=== PATIENT | female | born 1950 | race Caucasian/White ===

== ENCOUNTER 2017-11-11 20:30 | Outpatient (CLI) | payer OTHER, MEDICARE | END 2017-11-11 20:31 | disposition home or self-care (01) | LOC: SLEEPLAB 20:30 | PROVIDERS: ATTEND Internal Medicine | DX: G47.9 Sleep disorder, unspecified (principal); F41.9 Anxiety disorder, unspecified; I10 Essential (primary) hypertension; R00.2 Palpitations | CPT/HCPCS: 95810 ==

== ENCOUNTER 2018-05-03 14:38 | Outpatient (CLI) | payer OTHER, MEDICARE | END 2018-05-03 14:39 | disposition home or self-care (01) | LOC: BICMAMMO 14:38 | PROVIDERS: ATTEND Internal Medicine | DX: Z12.31 Encounter for screening mammogram for malignant neoplasm of breast (principal) | CPT/HCPCS: 77063; 77067 ==

== ENCOUNTER 2018-09-10 08:34 | Outpatient (CLI) | payer OTHER, MEDICARE ==
--- NOTE | 2018-09-10 10:24 | BD ---
DEXA BONE MINERAL DENSITY: HISTORY: Osteoporosis screening. Postmenopausal female. COMPARISON: DEXA study 04/05/2016. FINDINGS: Lumbar Spine: BMD (g/cm2) L1 0.780 T-Score: -1.9 -0.2 L2 0.812 T-Score: -2.0 -0.1 L3 0.756 T-Score: -3.0 -1.0 L4 0.856 T-Score: -1.9 0.1 L1-L4 0.802 T-Score: -2.2 -0.3 WHO classification of osteopenia change from the baseline of -6.6%, statistically significant. Beltrán e from previous is +6.2%, statistically significant. Femoral Neck: 0.542 T-Score: -2.8 -1.2 Total Femur: 0.786 T-Score: -1.3 0.0 WHO classification of osteoporosis. Change from the baseline examination from 2012 is -8.4%, statistically significant. Change from the previous is -1.2%, not statistically significant. 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 POS: [facility]
== END 2018-09-10 08:35 | disposition home or self-care (01) ==
LOC: BICMAMMO 08:34
PROVIDERS: ATTEND Internal Medicine Hematology & Oncology
DX: M81.0 Age-related osteoporosis without current pathological fracture (principal); M85.88 Other specified disorders of bone density and structure, other site
CPT/HCPCS: 77080

== ENCOUNTER 2019-05-28 09:22 | Outpatient (CLI) | payer OTHER, MEDICARE ==
--- NOTE | 2019-05-28 11:07 | MMO ---
Bilateral MAMMO Bilat Screen [facility]. CLINICAL HISTORY: Patient is 68 years old and is seen for screening. The patient has no family history of breast cancer. The patient has no personal history of cancer. VIEWS: The views performed were: bilateral craniocaudal with tomosynthesis; bilateral mediolateral oblique with tomosynthesis; and bilateral exaggerated craniocaudal. FILMS COMPARED: The present examination has been compared to prior imaging studies performed at [facility] on 05/03/2018, and [place] [facility]/07[place]2015, 04/05/2016 and 04/07/2017. MAMMOGRAM FINDINGS: The breasts are heterogeneously dense, which could obscure a lesion on mammography. There are no suspicious masses, suspicious calcifications, or new areas of architectural distortion. IMPRESSION: THERE IS NO MAMMOGRAPHIC EVIDENCE OF MALIGNANCY. A ROUTINE FOLLOW-UP MAMMOGRAM IN 1 YEAR IS RECOMMENDED. THE RESULTS OF THIS EXAM WERE SENT TO THE PATIENT. ACR BI-RADS Category 1 - Negative MAMMOGRAPHY NOTE: 1. A negative mammogram report should not delay a biopsy if a dominant of clinically suspicious mass is present. 2. Approximately 10% to 15% of breast cancers are not detected by mammography. 3. Adenosis and dense breasts may obscure an underlying neoplasm. Reported by: WELLINGTON QUICK MD Electonically Signed: [id number]
== END 2019-05-28 09:23 | disposition home or self-care (01) ==
LOC: BICMAMMO 09:22
PROVIDERS: ATTEND Internal Medicine
DX: Z12.31 Encounter for screening mammogram for malignant neoplasm of breast (principal)
CPT/HCPCS: 77063; 77067

== ENCOUNTER 2020-05-29 10:49 | Outpatient (CLI) | payer OTHER, MEDICARE ==
--- NOTE | 2020-05-29 11:30 | MMO ---
Bilateral MAMMO Bilat Screen [facility]. CLINICAL HISTORY: Patient is 69 years old and is seen for screening. The patient has no family history of breast cancer. The patient has no personal history of cancer. VIEWS: The views performed were: bilateral craniocaudal with tomosynthesis and bilateral mediolateral oblique with tomosynthesis. FILMS COMPARED: The present examination has been compared to prior imaging studies performed at [facility] on 05/03/2018 and 05/28/2019, and at [facility] on 04/05/2016 and 04/07/2017. This study has been interpreted with the assistance of computer-aided detection. MAMMOGRAM FINDINGS: The breasts are heterogeneously dense, which could obscure a lesion on mammography. There are no suspicious masses, suspicious calcifications, or new areas of architectural distortion. IMPRESSION: THERE IS NO MAMMOGRAPHIC EVIDENCE OF MALIGNANCY. A ROUTINE FOLLOW-UP MAMMOGRAM IN 1 YEAR IS RECOMMENDED. THE RESULTS OF THIS EXAM WERE SENT TO THE PATIENT. ACR BI-RADS Category 1 - Negative MAMMOGRAPHY NOTE: 1. A negative mammogram report should not delay a biopsy if a dominant of clinically suspicious mass is present. 2. Approximately 10% to 15% of breast cancers are not detected by mammography. 3. Adenosis and dense breasts may obscure an underlying neoplasm. Reported by: YEN QUINONEZ MD Electonically Signed: [id number]
--- NOTE | 2020-05-29 11:43 | BD ---
BONE DENSITOMETRY: Date: 05/29/2020 HISTORY: Postmenopausal screening. FINDINGS: Lumbar Spine: BMD (g/cm2) L1 0.814 T-Score: -1.6 L2 0.895 T-Score: -1.2 L3 0.803 T-Score: -2.6 L4 0.808 T-Score: -2.3 Total 0.828 T-Score: -2.0 Previous total lumbar density: 09/10/2018: 0.802 04/05/2016: 0.756 04/23/2013: 0.859 Femoral Neck: 0.554 T-Score: -2.7 Total Femur: 0.774 T-Score: -1.4 Previous total density: 09/10/2018: 0.786 04/05/2016: 0.796 04/23/2013: 0.858 IMPRESSION: 1. Bone mineral density of the femoral neck indicates osteoporosis. 2. Bone mineral density of the lumbar spine indicates osteopenia. POS: [facility]
== END 2020-05-29 10:50 | disposition home or self-care (01) ==
LOC: BICMAMMO 10:49
PROVIDERS: ATTEND Internal Medicine
DX: Z12.31 Encounter for screening mammogram for malignant neoplasm of breast (principal); M81.0 Age-related osteoporosis without current pathological fracture; M85.88 Other specified disorders of bone density and structure, other site
CPT/HCPCS: 77063; 77067; 77080

== ENCOUNTER 2020-12-07 15:40 | Outpatient (CLI) | payer OTHER, MEDICARE ==
--- NOTE | 2020-12-07 16:03 | RAD ---
XR Hip Rt 2-3 View History: Hip pain Comparison: None. Findings: Moderate degenerative disease of the right hip with medialization the femoral head, margina l osteophytes of the right femoral head and neck junction, as well as ossification of the right labrum. Moderate sclerosis of the pubic symphysis. No SI joint widening. Moderate facet arthrosis lower lumbar spine. Mild posttraumatic changes on the left hamstring tendons. Impression: Mild-advanced right hip degenerative change.
== END 2020-12-07 15:41 | disposition home or self-care (01) ==
LOC: BICRAD 15:40
PROVIDERS: ATTEND Physical Medicine & Rehabilitation
DX: M25.551 Pain in right hip (principal); M16.11 Unilateral primary osteoarthritis, right hip

== ENCOUNTER 2020-12-29 08:38 | Outpatient (CLI) | payer OTHER, MEDICARE ==
--- NOTE | 2020-12-29 11:24 | MRI ---
MR the lumbar spine without contrast: 12/29/2020 History: Low back pain with right lower extremity radiculopathy COMPARISON: 12/07/2015 TECHNIQUE: Multiplanar multisequence MR images were obtained of lumbar spine without IV contrast FINDINGS: On the basis of 5 lumbar type vertebral bodies, conus medullaris terminates at [id number] level. Sagittal STIR imaging demonstrates no focal area of osseous marrow edema. There is mild anterolisthes is at L4-5 measuring 5-6 mm and at L5-S1 measuring 5 mm. T12-L1:There is mild disc space and with disc desiccation with mild bilateral facet hypertrophy. No s ignificant central canal or neural foraminal stenosis. Anterior right-sided osteophyte formation noted. L1-2:Mild anterior osteophyte formation and mild bilateral facet hypertrophy. No significant central canal or neural foraminal stenosis. L2-3:Mild bilateral facet hypertrophy. There is no significant central canal or neural foraminal sten osis. L3-4:There is bilateral facet hypertrophy and hypertrophy of the ligamentum flavum, right greater gamal n left. There is disc space narrowing with disc desiccation and mild disc bulge. No significant central canal or neural foraminal stenosis. L4-5:There is disc space and with disc desiccation and mild disc bulge. There is prominent bilateral facet hypertrophy and hypertrophy of the ligamentum flavum with moderate central canal stenosis. There is fluid within the facet joint on the right. No significant neural foraminal stenosis noted. C entral canal stenosis as well as bilateral facet hypertrophy has worsened at L4-5 when compared to the 2016 exam. L5-S1:Prominent bilateral facet hypertrophy. There is disc space narrowing with disc desiccation and mild disc bulge. The thecal sac is small at this level secondary to epidural fat, a stable finding. No significant neural foraminal stenosis noted. Bilateral L5 pars defects are noted. Image retroperitoneal structures demonstrate a lateral mid pole left renal round T2 hyperintense les ion measuring 1.4 cm, which is has grown from approximately 4 mm on the prior examination. Given interval growth, ultrasound advised. IMPRESSION: Degenerative change within the lumbar spine, worsened at the L4-5 level as detailed above. T2 hyperintense left renal lesion as detailed above. Recommend further assessment with renal ultrasou nd. CODE T
== END 2020-12-29 08:39 | disposition home or self-care (01) ==
LOC: MRI 08:38
PROVIDERS: ATTEND Physical Medicine & Rehabilitation
DX: R20.2 Paresthesia of skin (principal); M47.816 Spondylosis without myelopathy or radiculopathy, lumbar region; M47.817 Spondylosis without myelopathy or radiculopathy, lumbosacral region; N28.9 Disorder of kidney and ureter, unspecified
CPT/HCPCS: 72148

== ENCOUNTER 2021-01-15 12:55 | Outpatient (CLI) | payer OTHER, MEDICARE | END 2021-01-15 12:56 | disposition home or self-care (01) | LOC: ULT 12:55 | PROVIDERS: ATTEND Internal Medicine | DX: N28.1 Cyst of kidney, acquired (principal) | CPT/HCPCS: 76770 ==

== ENCOUNTER 2021-05-07 09:39 | Outpatient (CLI) | payer OTHER, MEDICARE | END 2021-05-07 09:40 | disposition home or self-care (01) | LOC: EEVIPCON 09:39 → BICULT 09:39 | PROVIDERS: ATTEND Internal Medicine | DX: N28.1 Cyst of kidney, acquired (principal) | CPT/HCPCS: 76770 ==

== ENCOUNTER 2022-05-30 14:56 | Outpatient (CLI) | payer BC, MEDICARE | END 2022-05-30 14:57 | disposition home or self-care (01) | LOC: BICMAMMO 14:56 | PROVIDERS: ATTEND Internal Medicine | DX: Z12.31 Encounter for screening mammogram for malignant neoplasm of breast (principal) | CPT/HCPCS: 77063; 77067 ==

== ENCOUNTER 2022-07-13 14:48 | Outpatient (CLI) | payer BC, MEDICARE | END 2022-07-13 14:49 | disposition home or self-care (01) | LOC: BICMAMMO 14:48 | PROVIDERS: ATTEND Internal Medicine | DX: Z13.820 Encounter for screening for osteoporosis (principal); M81.0 Age-related osteoporosis without current pathological fracture; Z78.0 Asymptomatic menopausal state | CPT/HCPCS: 77080 ==

== ENCOUNTER 2022-09-27 09:18 | Outpatient (CLI) | payer BC, MEDICARE | END 2022-09-27 09:19 | disposition home or self-care (01) | LOC: LABBT 09:18 | PROVIDERS: ATTEND Neurological Surgery | DX: Z01.810 Encounter for preprocedural cardiovascular examination (principal) | CPT/HCPCS: 93005; 93010 ==

== ENCOUNTER 2022-09-30 06:57 | Day surgery (SDC) | payer BC, MEDICARE ==
[2022-09-29 13:14] VITALS: BMI 23.6
[2022-09-30] MEDS ORDERED: fentaNYL PF 100 MCG/2 ML SYRINGE ONE ×2 (08:57)
[2022-09-30] MEDS ORDERED: Dexmedetomidine 200 MCG/2 ML VIAL ONE (08:58)
[2022-09-30] MEDS ORDERED: CEFAZOLIN 2 GM VIAL ONE ×2 (09:06→15:21)
[2022-09-30] MEDS ORDERED: Sodium Chloride 0.9% 100 ML ONE ×2 (09:06→15:21)
[2022-09-30] MEDS ORDERED: PROPOFOL 200 MG/20 ML VIAL ONE (09:20)
[2022-09-30] MEDS ORDERED: ePHEDrine 50 MG/ML VIAL ONE (09:20)
[2022-09-30] MEDS ORDERED: Rocuronium Bromide 10 MG/ML (10ML VIAL) ONE (09:20)
[2022-09-30] MEDS ORDERED: Esmolol 100 MG/10 ML VIAL ONE (09:20)
[2022-09-30] MEDS ORDERED: Ondansetron PF 4 MG/2 ML Vial ONE (09:20)
[2022-09-30] MEDS ORDERED: Phenylephrine 10 MG/ML VIAL ONE (09:20)
[2022-09-30] MEDS ORDERED: Dexamethasone 20 MG/5 ML VIAL ONE (09:20)
[2022-09-30] MEDS ORDERED: NEOSTIGMINE 3 MG/3 ML SYR 3 MG/3 ML SYRINGE ONE (09:20)
[2022-09-30] MEDS ORDERED: MINERAL OIL/WHITE PETROLATUM 3.5 GM TUBE ONE (09:27)
[2022-09-30] MEDS ORDERED: Thrombin 5000 UNITS/5 ML VIAL ONE (09:27)
[2022-09-30] MEDS ORDERED: Bupivacaine HCl 0.5%/Epinephrine 1:200,000/PF 30 ml Vial ONE ×2 (09:39→10:09)
[2022-09-30] MEDS ORDERED: FENTANYL 50 MCG/ML 1 ML VIAL ONE ×2 (13:23→13:49)
[2022-09-30] MEDS ORDERED: HYDROcodone/Acetaminophen 5/325 mg Tablet ONE (15:12)
== END 2022-09-30 17:43 | disposition home or self-care (01) ==
LOC: SDC 06:57
PROVIDERS: ATTEND Neurological Surgery
PROC: 0SG0071 Fusion of Lumbar Vertebral Joint with Autologous Tissue Substitute, Posterior Approach, Posterior Column, Open Approach (ICD-10-PCS; principal; 2022-09-30)
PROC: 0QB00ZZ Excision of Lumbar Vertebra, Open Approach (ICD-10-PCS; principal; 2022-09-30)
PROC: 01NB0ZZ Release Lumbar Nerve, Open Approach (ICD-10-PCS; principal; 2022-09-30)
DX: M43.16 Spondylolisthesis, lumbar region (principal); M71.38 Other bursal cyst, other site; M48.061 Spinal stenosis, lumbar region without neurogenic claudication; M47.26 Other spondylosis with radiculopathy, lumbar region; M47.16 Other spondylosis with myelopathy, lumbar region; E78.5 Hyperlipidemia, unspecified; I10 Essential (primary) hypertension; G89.29 Other chronic pain; M81.0 Age-related osteoporosis without current pathological fracture; Z79.82 Long term (current) use of aspirin; Z79.899 Other long term (current) drug therapy
CPT/HCPCS: C1713; C1768; C1776; J1100; J2370; J2405; J2704; J3010; J3490; J7643

== ENCOUNTER 2023-06-19 14:01 | Outpatient (CLI) | payer BC, MEDICARE | END 2023-06-19 14:02 | disposition home or self-care (01) | LOC: BICMAMMO 14:01 | PROVIDERS: ATTEND Internal Medicine | DX: Z12.31 Encounter for screening mammogram for malignant neoplasm of breast (principal) | CPT/HCPCS: 77063; 77067 ==

== ENCOUNTER 2023-08-28 06:45 | Day surgery (SDC) | payer BC, MEDICARE ==
[2023-08-25 09:46] VITALS: BMI 22.3
[2023-08-28] MEDS ORDERED: ePHEDrine Sulfate 50 MG/10 ML VIAL ONE (08:42)
[2023-08-28] MEDS ORDERED: PROPOFOL 200 MG/20 ML VIAL ONE (08:42)
[2023-08-28] MEDS ORDERED: Lidocaine 1% PF 5 ML VIAL ONE (08:42)
[2023-08-28] MEDS ORDERED: PHENYLEPHRINE-NS 100 MCG/ML 10 ML SYRINGE ONE (08:42)
== END 2023-08-28 10:00 | disposition home or self-care (01) ==
LOC: SDC 06:45
PROVIDERS: ATTEND Internal Medicine Gastroenterology
PROC: 0DJ08ZZ Inspection of Upper Intestinal Tract, Via Natural or Artificial Opening Endoscopic (ICD-10-PCS; principal; 2023-08-28)
PROC: 0DJD8ZZ Inspection of Lower Intestinal Tract, Via Natural or Artificial Opening Endoscopic (ICD-10-PCS; principal; 2023-08-28)
DX: Z12.11 Encounter for screening for malignant neoplasm of colon (principal); K57.30 Diverticulosis of large intestine without perforation or abscess without bleeding; R10.13 Epigastric pain; I10 Essential (primary) hypertension; Z79.82 Long term (current) use of aspirin
CPT/HCPCS: J2704

== ENCOUNTER 2024-01-09 13:46 | Outpatient (CLI) | payer BC, MEDICARE | END 2024-01-09 13:47 | disposition home or self-care (01) | LOC: BICULT 13:46 | PROVIDERS: ATTEND Internal Medicine | DX: N28.1 Cyst of kidney, acquired (principal) | CPT/HCPCS: 76770 ==

== ENCOUNTER 2024-01-19 13:41 | Outpatient (CLI) | payer BC, MEDICARE | END 2024-01-19 13:42 | disposition home or self-care (01) | LOC: BICMAMMO 13:41 | PROVIDERS: ATTEND Internal Medicine | DX: M81.0 Age-related osteoporosis without current pathological fracture (principal); M85.851 Other specified disorders of bone density and structure, right thigh; M85.852 Other specified disorders of bone density and structure, left thigh | CPT/HCPCS: 77080 ==

== ENCOUNTER 2024-10-31 08:36 | Outpatient (CLI) | payer BC, MEDICARE ==
[2024-10-31 11:31] LABS: #Basophils 0.03 10x3/uL (0.0-0.2); %Basophils 0.7 % (0.0-1.0); %Eosinophils 2.4 % (0.0-10.0); %Lymphocytes 19.7 % (21.0-51.0); %Monocytes 8.7 % (0.0-10.0); %Neutrophils 67.4 % (42.0-75.0); Hematocrit 40.4 % (36.0-47.0); Mean Corpuscular HGB CONC 32.2 g/dL (32.0-36.0); Mean Corpuscular Hemoglobin 34.5 pg (27.0-31.0); Mean Corpuscular Volume 107.2 fL (78.0-98.0); Mean Platelet Volume 9.5 fL (7.4-10.4); Platelet Count 429 10x3/uL (130-400); RBC Distribution Width 14.2 % (11.5-14.5); Red Blood Cell (RBC) Count 3.77 mill/uL (4.20-5.40)
[2024-10-31 11:47] LABS: INR-International Normal Ratio 0.9; Prothrombin Time 12.6 sec (12.0-14.7)
[2024-10-31 12:02] LABS: Anion Gap 13 mmol/L (10-20); BUN (Urea Nitrogen) 19 mg/dL (9.8-20.1); Calc. Creatinine Clearance 0 mL/min (70-130); Carbon Dioxide 29 mmol/L (23-31); Chloride 102 mmol/L (98-107); Estimated GFR 59; Glucose 78 mg/dL (83-110); Potassium 3.6 mmol/L (3.5-5.1); Sodium 140 mmol/L (136-145)
== END 2024-10-31 08:37 | disposition home or self-care (01) ==
LOC: LABBT 08:36
PROVIDERS: ATTEND Orthopaedic Surgery
DX: Z01.818 Encounter for other preprocedural examination (principal); M16.11 Unilateral primary osteoarthritis, right hip
CPT/HCPCS: 80048; 85025; 85610; 87081; 93005; 93010

== ENCOUNTER 2024-11-04 05:31 | Inpatient (IN) | payer BC, MEDICARE ==
[2024-10-31 08:48] VITALS: BMI 23.6
[2024-11-04] MEDS ORDERED: Sodium Chloride 0.9% 100 ML ONE (05:59)
[2024-11-04] MEDS ORDERED: Vancomycin 1 GM/200 ML (FROZEN) BAG ONE (05:59)
[2024-11-04] MEDS ORDERED: Tranexamic Acid 1,000 MG/10 ML VIAL ONE (05:59)
[2024-11-04] MEDS ORDERED: Ropivacaine 0.2% HCl/PF 20 ML ONE (06:02)
[2024-11-04] MEDS ORDERED: PROPOFOL 20 ML ONE (06:08)
[2024-11-04] MEDS ORDERED: fentaNYL PF 100 MCG/2 ML SYRINGE ONE (06:08)
[2024-11-04] MEDS ORDERED: SUGAMMADEX SODIUM 200 MG/2 ML VIAL ONE (06:08)
[2024-11-04] MEDS ORDERED: Sodium Chloride 0.9% 250 ML 250 ML ONE (06:09)
[2024-11-04] MEDS ORDERED: Phenylephrine 10 MG/ML VIAL ONE (06:09)
[2024-11-04] MEDS ORDERED: Lidocaine 4% Topical Sol 50 ML BOT ONE (06:13)
[2024-11-04] MEDS ORDERED: Rocuronium Bromide 50 MG/5 ML VIAL ONE (06:13)
[2024-11-04] MEDS ORDERED: Dexamethasone 4 mg/ml Vial ONE (06:14)
[2024-11-04] MEDS ORDERED: Ondansetron PF 4 MG/2 ML Vial ONE (06:14)
[2024-11-04] MEDS ORDERED: CEFAZOLIN 2 GM VIAL ONE (06:56)
[2024-11-04] MEDS ORDERED: Lidocaine 1.5% w/Epi 1:200K 30 ML VIAL (Epid Use) ONE (07:35)
[2024-11-04] MEDS ORDERED: Naloxone HCl 0.4 mg/ml Vial IV PRN (08:00)
[2024-11-04] MEDS ORDERED: traMADol HCl 50 MG TAB PO PRN ×4 (08:00→09:55)
[2024-11-04] MEDS ORDERED: Bupivacaine 0.25% 10 ML VIAL EPIDURAL PRN (08:00)
[2024-11-04] MEDS ORDERED: Moisturizing Cream (Eucerin) 113 GM JAR TOP PRN (08:00)
[2024-11-04] MEDS ORDERED: Promethazine HCl 25 MG/ML VIAL IM PRN ×2 (08:00→09:55)
[2024-11-04] MEDS ORDERED: HYDROcodone/Acetaminophen 5/325 mg Tablet PO PRN ×2 (08:00)
[2024-11-04] MEDS ORDERED: Naloxone HCl 0.4 mg/ml Vial IVP PRN (08:00)
[2024-11-04] MEDS ORDERED: Promethazine HCl 25 MG SUPP PR PRN (08:00)
[2024-11-04] MEDS ORDERED: Aspirin 81 mg Enteric Coated Tablet PO SCH (09:55)
[2024-11-04] MEDS ORDERED: diphenhydrAMINE 25 MG CAP PO PRN (09:55)
[2024-11-04] MEDS ORDERED: Zolpidem Tartrate 5 MG TAB PO PRN (09:55)
[2024-11-04] MEDS ORDERED: Ondansetron PF 4 MG/2 ML Vial IVP PRN (09:55)
[2024-11-04] MEDS ORDERED: Hydroxyurea 500 MG CAP PO SCH (09:55)
[2024-11-04] MEDS ORDERED: fentaNYL 50 mcg/mL 1 mL Vial SLOW IVP PRN (09:55)
[2024-11-04] MEDS ORDERED: HYDROcodone/Acetaminophen 10/325 mg Tablet PO PRN ×2 (09:55)
[2024-11-04] MEDS ORDERED: Acetaminophen 325 MG TAB PO PRN (09:55)
[2024-11-04] MEDS: Sodium Chloride 0.9% 1,000 ML IV SCH (11:53)
[2024-11-04] MEDS: Ferrous Gluconate 324 MG TAB PO SCH ×2 (11:55→20:31)
[2024-11-04] MEDS: Lisinopril 20 MG TAB PO SCH (11:55)
[2024-11-04] MEDS: Cholecalciferol 1,000 UNITS (25 MCG) TAB PO SCH (11:55)
[2024-11-04] MEDS: Hydrochlorothiazide 25 MG TAB PO SCH (11:55)
[2024-11-04] MEDS: Senokot S 8.6-50 MG TAB PO SCH ×2 (11:56→20:31)
[2024-11-04] MEDS: Multivitamin W/ Minerals 1 TAB PO SCH (11:56)
[2024-11-04] MEDS: Ketorolac Tromethamine 30 MG (1 mL) VIAL IVP SCH (12:42)
[2024-11-04] MEDS: Acetaminophen 325 MG TAB PO SCH (12:43)
[2024-11-04] MEDS ORDERED: Ketorolac Tromethamine 30 MG (1 mL) VIAL IVP SCH (14:00)
[2024-11-04] MEDS: CEFAZOLIN 2 GM in Sodium Chloride 0.9% 100 ML IVPB SCH (14:27)
[2024-11-04] MEDS: Metoprolol Succinate XL 25 MG ER.TAB PO SCH (20:48)
[2024-11-04] MEDS: Atorvastatin Calcium 10 MG TAB PO SCH (20:50)
[2024-11-05] MEDS: FENTANYL 500 MCG/10 ML VIAL 500 MCG, Bupivacaine 0.75% 10 ML in Sodium Chloride 0.9% 80 ML EPIDURAL SCH (01:57)
[2024-11-05 05:39] LABS: Hematocrit 26.4 % (36.0-47.0); Hemoglobin 8.5 g/dL (12.0-16.0); Mean Corpuscular HGB CONC 32.2 g/dL (32.0-36.0); Mean Corpuscular Volume 105.6 fL (78.0-98.0); Mean Platelet Volume 9.1 fL (7.4-10.4); Platelet Count 365 10x3/uL (130-400); RBC Distribution Width 13.8 % (11.5-14.5)
[2024-11-05 07:32] LABS: #Basophils Less than 0.03 10x3/uL (0.0-0.2); #Eosinophils Less than 0.03 10x3/uL (0.0-0.7); %Basophils 0.4 % (0.0-1.0); %Eosinophils 0.4 % (0.0-10.0); %Lymphocytes 14.9 % (21.0-51.0); %Monocytes 10.4 % (0.0-10.0); %Neutrophils 73.2 % (42.0-75.0); Hemoglobin 8.9 g/dL (12.0-16.0); Mean Corpuscular Hemoglobin 34.2 pg (27.0-31.0); Mean Corpuscular Volume 103.8 fL (78.0-98.0); Mean Platelet Volume 9.2 fL (7.4-10.4); Platelet Count 360 10x3/uL (130-400); RBC Distribution Width 13.8 % (11.5-14.5)
[2024-11-05] MEDS: Ondansetron PF 4 MG/2 ML Vial IVP PRN (08:46)
[2024-11-05] MEDS: Hydrochlorothiazide 25 MG TAB PO SCH (10:36)
[2024-11-05] MEDS: Lisinopril 20 MG TAB PO SCH (10:36)
[2024-11-05] MEDS: Multivitamin W/ Minerals 1 TAB PO SCH (10:41)
[2024-11-05] MEDS: Cholecalciferol 1,000 UNITS (25 MCG) TAB PO SCH (10:41)
[2024-11-05] MEDS: Hydroxyurea 500 MG CAP PO SCH (10:42)
[2024-11-05 18:25] LABS: ALT (SGPT) 11 U/L (8-55); AST (SGOT) 39 U/L (5-34); Albumin 3.5 g/dL (3.4-4.8); Alkaline Phosphatase 49 U/L (40-110); Anion Gap 13 mmol/L (10-20); BUN (Urea Nitrogen) 27 mg/dL (9.8-20.1); Bilirubin, Total 0.3 mg/dL (0.2-1.2); Calc. Creatinine Clearance 42 mL/min (70-130); Calcium 8.7 mg/dL (7.8-10.44); Carbon Dioxide 26 mmol/L (23-31); Chloride 101 mmol/L (98-107); Estimated GFR 52; Globulin 3.2 g/dL (2.4-3.5); Glucose 102 mg/dL (83-110); Potassium 3.4 mmol/L (3.5-5.1); Protein, Total 6.7 g/dL (5.8-8.1); Sodium 137 mmol/L (136-145)
[2024-11-05] MEDS ORDERED: Apixaban 2.5 MG TAB PO SCH ×2 (21:00)
[2024-11-06 04:58] LABS: Hemoglobin 8.8 g/dL (12.0-16.0); Mean Corpuscular HGB CONC 32.6 g/dL (32.0-36.0); Mean Corpuscular Hemoglobin 34.2 pg (27.0-31.0); Mean Corpuscular Volume 105.1 fL (78.0-98.0); Mean Platelet Volume 9.1 fL (7.4-10.4); Platelet Count 375 10x3/uL (130-400); RBC Distribution Width 13.8 % (11.5-14.5); Red Blood Cell (RBC) Count 2.57 mill/uL (4.20-5.40)
[2024-11-06 05:11] LABS: INR-International Normal Ratio 1.1; Prothrombin Time 13.9 sec (12.0-14.7)
[2024-11-06 05:12] LABS: PTT 33.4 sec (22.9-36.1)
[2024-11-06] MEDS ORDERED: Hydroxyurea 500 MG CAP PO SCH (09:00)
[2024-11-07 06:18] LABS: Hematocrit 25.5 % (36.0-47.0); Hemoglobin 8.3 g/dL (12.0-16.0); Mean Corpuscular HGB CONC 32.5 g/dL (32.0-36.0); Mean Corpuscular Hemoglobin 34.4 pg (27.0-31.0); Mean Corpuscular Volume 105.8 fL (78.0-98.0); Mean Platelet Volume 9.1 fL (7.4-10.4); Platelet Count 373 10x3/uL (130-400); RBC Distribution Width 13.5 % (11.5-14.5); Red Blood Cell (RBC) Count 2.41 mill/uL (4.20-5.40)
[2024-11-07 06:32] LABS: Anion Gap 9 mmol/L (10-20); BUN (Urea Nitrogen) 15 mg/dL (9.8-20.1); Calc. Creatinine Clearance 66 mL/min (70-130); Calcium 8.4 mg/dL (7.8-10.44); Carbon Dioxide 25 mmol/L (23-31); Chloride 104 mmol/L (98-107); Estimated GFR 90; Glucose 110 mg/dL (83-110); Sodium 134 mmol/L (136-145)
[2024-11-07] MEDS: Pantoprazole 40 MG VIAL IVP SCH ×2 (14:13→21:38)
[2024-11-08 05:38] LABS: Hematocrit 25.4 % (36.0-47.0); Hemoglobin 8.3 g/dL (12.0-16.0); Mean Corpuscular HGB CONC 32.7 g/dL (32.0-36.0); Mean Corpuscular Hemoglobin 34.6 pg (27.0-31.0); Mean Corpuscular Volume 105.8 fL (78.0-98.0); Mean Platelet Volume 9.2 fL (7.4-10.4); Platelet Count 391 10x3/uL (130-400); RBC Distribution Width 13.7 % (11.5-14.5)
[2024-11-08 05:55] LABS: Anion Gap 8 mmol/L (10-20); BUN (Urea Nitrogen) 10 mg/dL (9.8-20.1); Calc. Creatinine Clearance 65 mL/min (70-130); Calcium 8.5 mg/dL (7.8-10.44); Carbon Dioxide 28 mmol/L (23-31); Chloride 105 mmol/L (98-107); Estimated GFR 89; Glucose 100 mg/dL (83-110); Potassium 3.9 mmol/L (3.5-5.1); Sodium 137 mmol/L (136-145)
[2024-11-08] MEDS ORDERED: Iopamidol-370 76% 500 ML MDV (1 ML CHARGE) ONE (14:58)
[2024-11-08] MEDS: Aspirin 81 mg Enteric Coated Tablet PO SCH (22:06)
[2024-11-09 05:33] LABS: #Basophils 0.03 10x3/uL (0.0-0.2); %Basophils 0.6 % (0.0-1.0); %Eosinophils 2.5 % (0.0-10.0); %Lymphocytes 16.8 % (21.0-51.0); %Monocytes 9.2 % (0.0-10.0); %Neutrophils 67.2 % (42.0-75.0); Hematocrit 25.5 % (36.0-47.0); Hemoglobin 8.2 g/dL (12.0-16.0); Mean Corpuscular HGB CONC 32.2 g/dL (32.0-36.0); Mean Corpuscular Hemoglobin 34.3 pg (27.0-31.0); Mean Corpuscular Volume 106.7 fL (78.0-98.0); Mean Platelet Volume 8.9 fL (7.4-10.4); Platelet Count 390 10x3/uL (130-400); RBC Distribution Width 13.9 % (11.5-14.5); Red Blood Cell (RBC) Count 2.39 mill/uL (4.20-5.40)
[2024-11-10] MEDS: Pantoprazole 40 MG DR.TAB PO SCH (22:19)
[2024-11-11 16:35] VITALS: BP 119/75; TEMP 98.1
== END 2024-11-11 17:09 | disposition swing bed (61) | DRG 470 ==
LOC: SDC 05:31 → SURG A 11:29 → OBSVTOIN 11-06 07:45
PROVIDERS: ADMIT Orthopaedic Surgery; ATTEND Orthopaedic Surgery
PROC: 0SR9049 Replacement of Right Hip Joint with Ceramic on Polyethylene Synthetic Substitute, Cemented, Open Approach (ICD-10-PCS; principal; 2024-11-04)
DX: M16.11 Unilateral primary osteoarthritis, right hip (principal); I10 Essential (primary) hypertension; E78.5 Hyperlipidemia, unspecified; D64.9 Anemia, unspecified; D75.839 Thrombocytosis, unspecified; F41.9 Anxiety disorder, unspecified; Z90.89 Acquired absence of other organs
CPT/HCPCS: 36415; 72170; 74177; 80048; 80053; 82274; 82607; 83615; 85027; 85046; 85610; 85730; 96374; 96375; 96376; C1713; C1776; C1889; G0378; J1100; J1885; J2371; J2405; J2470; J2704; J2795; J3010; J3370; J3490; J7050; Q9967